=== PATIENT | female | born 1985 ===

== ENCOUNTER 2017-08-14 23:56 | Emergency (ER) | payer SELFPAY ==
[2017-08-14 23:57] VITALS: BMI 28.8
[2017-08-15 00:15] VITALS: BP 116/68; PULSE 90; RESP 16; TEMP 99.5; O2SAT 100
[2017-08-15] MEDS: Sodium Chloride 0.9% 1,000 ML IV STA (01:11)
--- NOTE | 2017-08-15 01:18 | ED PDOC ---
HPI:Nausea, Vomiting, Diarrhea Time Seen by Provider: 08/15/17 00:27 Chief Complaint (Nursing): Abdominal Pain Chief Complaint (Provider): Nausea/Vomiting History Per: Patient History/Exam Limitations: no limitations Onset/Duration Of Symptoms: Days (x5) Current Symptoms Are (Timing): Still Present Have you had recent travel within the past 21 days to any of the following countries: [place], [place], [place] or [place]?: No Additional Complaint(s): Sadaf Martinez is a 31 year old female that presents to the ED with a chief complaint of non-bloody vomiting and nausea that she has been experiencing for the past 5 days. Patients states that the day following the onset of her symptoms, she developed diarrhea and crampy epigastric non- radiating abdominal pain. Patient reports diarrhea has resolved, and she had two bowel movements today that were normal, but that her nausea and vomiting are persisting. She additionally reports having decreased appetite. Patient states her 6 year old son also has the same symptoms, and denies recent travel, melena, hematemesis, previous abdominal surgeries, fever, or chest pain. LMP: 08/03/17 Last Menstral Period: 08/03/17 Past Medical History Reviewed: Historical Data, Nursing Documentation, Vital Signs Vital Signs: Last Vital Signs Temp 99.5 F 08/15/17 00:13 Pulse 90 08/15/17 00:13 Resp 16 08/15/17 00:13 BP 116/68 08/15/17 00:13 Pulse Ox 100 08/15/17 00:13 - Medical History PMH: No Chronic Diseases Denies: Arthritis, Chronic Kidney Disease - Surgical History Surgical History: No Surg Hx - Family History Family History: States: No Known Family Hx, Unknown Family Hx - Home Medications Home Medications: Ambulatory Orders Medication Instructions Recorded Cephalexin [Keflex] 500 mg PO TID 08/20/14 Oxycodone HCl/Acetaminophen 5 - 325 mg PO Q4 PRN 08/20/14 [Percocet 325 mg-5 mg] Naproxen 500 mg PO BID PRN #30 tab 09/26/15 Oxycodone HCl/Acetaminophen 1 tab PO Q6 PRN #12 tab 09/26/15 [Percocet 325 mg-5 mg] oxyCODONE/Acetaminophen [Percocet 1 ea PO Q6H PRN #15 tab 10/16/16 5/325 mg Tab] Dicyclomine [Bentyl] 20 mg PO Q8 PRN #15 tab 08/15/17 Famotidine [Pepcid] 20 mg PO DAILY PRN #15 tab 08/15/17 Ondansetron ODT [Zofran ODT] 4 mg PO TID #15 odt 08/15/17 - Allergies Allergies/Adverse Reactions: Allergies Allergy/AdvReac Type Severity Reaction Status Date / Time No Known Allergies Allergy Verified 08/15/17 00:13 Review of Systems Gastrointestinal: Positive for: Nausea, Vomiting, Abdominal Pain (crampy, epigastric, non-radiating) Physical Exam - Reviewed Nursing Documentation Reviewed: Yes Vital Signs Reviewed: Yes - Physical Exam Appears: Positive for: Non-toxic, No Acute Distress Head Exam: Positive for: ATRAUMATIC, NORMOCEPHALIC Skin: Positive for: Normal Color, Warm Eye Exam: Positive for: EOMI, Normal appearance, PERRL ENT: Positive for: Normal ENT Inspection. Negative for: Pharyngeal Erythema Cardiovascular/Chest: Positive for: Regular Rate, Rhythm. Negative for: Murmur Respiratory: Positive for: Normal Breath Sounds. Negative for: Wheezing Gastrointestinal/Abdominal: Positive for: Soft, Tenderness (Minimal epigastric TTP). Negative for: Normal Exam Back: Positive for: Normal Inspection. Negative for: L CVA Tenderness, R CVA Tenderness Neurologic/Psych: Positive for: Alert, loom checker II-XII, Oriented. Negative for: Motor/Sensory Deficits - Laboratory Results Result Diagrams: 08/15/17 01:10 08/15/17 01:10 - ECG O2 Sat by Pulse Oximetry: 100 (RA) Pulse Ox Interpretation: Normal Medical Decision Making Medical Decision Making: Impression: Nausea/Vomiting Plan: * EKG * CMP * CBC * Lipase * Urine Dip * Urine Preg * Bentyl 20 mg PO * Pepcid 20 mg IV * Zofran 4 mg IV * NaCl 1000 mLs at 1000 mLs/hr 0200 On re-evaluation, pt. AAOx3. Reports complete relief of abd pain and nausea. No diarrhea or vomiting in ED. Abd soft and non-tender to deep palpation. Lab results reviewed with patient. Agrees with disposition. Scribe Attestation: Documented by Amy Angulo, acting as a scribe for Jayy Ogden PA-C. Provider Scribe Attestation: All medical record entries made by the Scribe were at my direction and personally dictated by me. I have reviewed the chart and agree that the record accurately reflects my personal performance of the history, physical exam, medical decision making, and the department course for this patient. I have also personally directed, reviewed, and agree with the discharge instructions and disposition. Disposition - Clinical Impression Clinical Impression: Gastroenteritis - Patient ED Disposition Is Patient to be Admitted: No - Disposition Referrals: [facility] [Outside] Disposition: Routine/Home Disposition Time: 02:00 Condition: IMPROVED Additional Instructions: Follow up with [facility] for further evaluation. Return to ED immediately if symptoms persist or worsen. Prescriptions: Dicyclomine [Bentyl] 20 mg PO Q8 PRN #15 tab PRN Reason: abdominal pain Famotidine [Pepcid] 20 mg PO DAILY PRN #15 tab PRN Reason: Dyspepsia Ondansetron ODT [Zofran ODT] 4 mg PO TID #15 odt Forms: [employer] (Bel[place]ian), [facility] ED School/Work Excuse Print Language: ROMANIAN
[2017-08-15 01:26] LABS: BASO % 0.4 % (0.0-2.0); EOS # 0.1 K/uL (0.0-0.7); EOS % 1.2 % (0.0-4.0); HEMATOCRIT 42.4 % (34.0-47.0); LYMPH # 1.3 K/uL (1.0-4.3); LYMPH % 14.1 % (20.0-40.0); MEAN CELL VOLUME 100.2 fl (81.0-99.0); MEAN CORPUSCULAR HEMOGLOBIN 33.1 pg (27.0-31.0); MEAN CORPUSCULAR HGB CONC 33.1 g/dL (33.0-37.0); MEAN PLATELET VOLUME 8.6 fl (7.2-11.7); MONO # 0.5 K/uL (0.0-0.8); MONO % 5.8 % (0.0-10.0); NEUT # 7.2 K/uL (1.8-7.0); NEUT % 78.5 % (50.0-75.0); RED CELL DISTRIBUTION WIDTH 11.8 % (11.5-14.5); WHITE BLOOD COUNT 9.2 K/uL (4.8-10.8)
[2017-08-15 01:36] LABS: ALB/GLOB RATIO 1.2 (1.0-2.1); BILIRUBIN,TOTAL 0.5 mg/dl (0.2-1.3); CALCIUM 9.1 mg/dL (8.4-10.2); CARBON DIOXIDE 23 mmol/L (22-30); CHLORIDE 106 mmol/L (98-107); GFR AFRICAN-AMERICAN > 60; GLUCOSE,RANDOM 103 mg/dL (65-105); LIPASE 106 U/L (23-300); SODIUM 139 mmol/l (132-148); TOTAL PROTEIN 7.8 G/DL (6.3-8.2)
[2017-08-15 01:38] LABS: ALKALINE PHOSPHATASE 61 U/L (38-126); ALT/SGPT 39 U/L (9-52); AST/SGOT 28 U/L (14-36); BLOOD UREA NITROGEN 15 mg/dl (7-17); POTASSIUM 4.3 MMOL/L (3.6-5.0)
--- NOTE | 2017-08-15 19:00 | CARD ---
APPROVED REPORT EKG Measurement Heart [id number] <Conclusion> Normal sinus rhythm Normal ECG
== END 2017-08-15 03:22 | disposition home or self-care (01) ==
LOC: H.ER 23:56
DX: K52.9 Noninfective gastroenteritis and colitis, unspecified (principal)
CPT/HCPCS: 80053; 81025; 83690; 85025; 93005; 96361; 96374; 96375; 99283; J2405; J7040

== ENCOUNTER 2018-11-24 09:14 | Emergency (ER) | payer SELFPAY ==
[2018-11-24 09:17] VITALS: BMI 31.6
[2018-11-24] MEDS ORDERED: Sodium Chloride 0.9% 1,000 ML IV STA (09:41)
--- NOTE | 2018-11-24 09:48 | ED PDOC ---
HPI: Headache Time Seen by Provider: 11/24/18 09:29 Chief Complaint (Provider): Headaches History Per: Patient History/Exam Limitations: no limitations Onset/Duration Of Symptoms: Persistent Current Symptoms Are (Timing): Still Present Preceeding Symptoms: denies: Visual Disturbances Associated Symptoms: Nausea. denies: Photophobia, Blurred Vision, Vomiting Additional Complaint(s): 33yo female, history of migraines, comes to ER reporting headache x 2 weeks with associated nausea. She states the headache was gradual onset, and denies any v ision changes, dizziness, neck stiffness, or fevers. She also denies any head injury or trauma. No additional complaints. PMD: None provided Past Medical History Reviewed: Historical Data, Nursing Documentation, Vital Signs Vital Signs: Last Vital Signs Temp 98.2 F 11/24/18 09:17 Pulse 72 11/24/18 09:17 Resp 16 11/24/18 09:17 BP 114/67 11/24/18 09:17 Pulse Ox 96 11/24/18 09:17 - Medical History PMH: Migraine Denies: Arthritis, Chronic Kidney Disease - Surgical History Surgical History: No Surg Hx - Family History Family History: States: Unknown Family Hx - Home Medications Home Medications: Ambulatory Orders Medication Instructions Recorded Cephalexin [Keflex] 500 mg PO TID 08/20/14 Oxycodone HCl/Acetaminophen 5 - 325 mg PO Q4 PRN 08/20/14 [Percocet 325 mg-5 mg] Naproxen 500 mg PO BID PRN #30 tab 09/26/15 Oxycodone HCl/Acetaminophen 1 tab PO Q6 PRN #12 tab 09/26/15 [Percocet 325 mg-5 mg] oxyCODONE/Acetaminophen [Percocet 1 ea PO Q6H PRN #15 tab 06/17/16 5/325 mg Tab] Dicyclomine [Bentyl] 20 mg PO Q8 PRN #15 tab 08/15/17 Famotidine [Pepcid] 20 mg PO DAILY PRN #15 tab 08/15/17 Ondansetron ODT [Zofran ODT] 4 mg PO TID #15 odt 08/15/17 Acetaminophen/Butalbital/Caf 1 tab PO Q8 #10 tab 11/24/18 [Fioricet] - Allergies Allergies/Adverse Reactions: Allergies Allergy/AdvReac Type Severity Reaction Status Date / Time No Known Allergies Allergy Verified 08/15/17 00:13 Review of Systems ROS Statement: Except As Marked, All Systems Reviewed And Found Negative Eyes: Negative for: Vision Change Gastrointestinal: Positive for: Nausea. Negative for: Vomiting Neurological: Positive for: Headache. Negative for: Weakness, Numbness, Dizziness Physical Exam - Reviewed Nursing Documentation Reviewed: Yes Vital Signs Reviewed: Yes - Physical Exam Appears: Positive for: Non-toxic, No Acute Distress Head Exam: Positive for: ATRAUMATIC, NORMAL INSPECTION, NORMOCEPHALIC Skin: Positive for: Normal Color, Warm, DRY Eye Exam: Positive for: EOMI, Normal appearance, PERRL Neck: Positive for: Normal, Painless ROM, Supple Cardiovascular/Chest: Positive for: Regular Rate, Rhythm. Negative for: Tachycardia Respiratory: Positive for: Normal Breath Sounds. Negative for: Respiratory Distress Gastrointestinal/Abdominal: Positive for: Normal Exam, Soft Back: Positive for: Normal Inspection Extremity: Positive for: Normal ROM. Negative for: Pedal Edema, Deformity Neurological/Psych: Positive for: Awake, Alert, Normal Tone, Oriented (x 3). Negative for: Motor/Sensory Deficits - ECG O2 Sat by Pulse Oximetry: 96 (RA) Pulse Ox Interpretation: Normal Medical Decision Making Medical Decision Makinyo with history of migraines, reports headache x [address] Head ordered considering history -- Labs, IV fluids, IV reglan and IV toradol ordered. 1200 CT head FINDINGS: HEMORRHAGE: No intracranial hemorrhage. BRAIN: No mass effect or edema. No atrophy or chronic microvascular ischemic changes. VENTRICLES: Unremarkable. No hydrocephalus. CALVARIUM: Unremarkable. PARANASAL SINUSES: Unremarkable as visualized. No significant inflammatory changes. MASTOID AIR CELLS: Unremarkable as visualized. No inflammatory changes. OTHER FINDINGS: None. IMPRESSION: No evidence of acute intracranial hemorrhage mass effect or midline shift. Scribe Attestation: Documented by Vianca Cruz, acting as a scribe for Angel Walker MD. Provider Scribe Attestation: All medical record entries made by the Scribe were at my direction and personally dictated by me. I have reviewed the chart and agree that the record accurately reflects my personal performance of the history, physical exam, medical decision making, and the department course for this patient. I have also personally directed, reviewed, and agree with the discharge instructions and disposition. Disposition - Clinical Impression Clinical Impression: Migraine - Patient ED Disposition Is Patient to be Admitted: No Counseled Patient/Family Regarding: Studies Performed, Diagnosis, Need For Followup, Rx Given - Disposition Referrals: Keely Mccoy MD [Medical Doctor] - Disposition: Routine/Home Disposition Time: 13:55 Condition: FAIR Prescriptions: Acetaminophen/Butalbital/Caf [Fioricet] 1 tab PO Q8 #10 tab Instructions: Migraine Headache (DC), Headache, Adult Print Language: ETHIOPIAN
--- NOTE | 2018-11-24 11:08 | CT ---
Date of service: 11/24/2018 PROCEDURE: CT HEAD WITHOUT CONTRAST. HISTORY: r/o bleed COMPARISON: None available. TECHNIQUE: Axial computed tomography images were obtained through the head/brain without intravenous contrast. Radiation dose: Total exam DLP = 773.71 mGy-cm. This CT exam was performed using one or more of the following dose reduction techniques: Automated exposure control, adjustment of the mA and/or kV according to patient size, and/or use of iterative reconstruction technique. FINDINGS: HEMORRHAGE: No intracranial hemorrhage. BRAIN: No mass effect or edema. No atrophy or chronic microvascular ischemic changes. VENTRICLES: Unremarkable. No hydrocephalus. CALVARIUM: Unremarkable. PARANASAL SINUSES: Unremarkable as visualized. No significant inflammatory changes. MASTOID AIR CELLS: Unremarkable as visualized. No inflammatory changes. OTHER FINDINGS: None. IMPRESSION: No evidence of acute intracranial hemorrhage mass effect or midline shift.
[2018-11-24 14:13] VITALS: BP 114/73; PULSE 76; RESP 18; TEMP 98.5; O2SAT 99
== END 2018-11-24 14:19 | disposition home or self-care (01) ==
LOC: H.ER 09:14
DX: G43.909 Migraine, unspecified, not intractable, without status migrainosus (principal)
CPT/HCPCS: 70450; 81025; 96374; 96375; 99285; J1885; J2765; J7030